=== PATIENT | female | born 1995 | race Caucasian/White ===

== ENCOUNTER 2017-03-23 15:02 | Emergency (ER) | payer BC, OTHER ==
[~2017-03-23] VITALS: Ht 162.6 cm; Wt 116.6 kg
[2017-03-23 15:45] VITALS: BP 123/81
== END 2017-03-23 16:47 | disposition home or self-care (01) ==
LOC: ER 15:02
DX: S93.401A Sprain of unspecified ligament of right ankle, initial encounter (principal); L73.2 Hidradenitis suppurativa; E11.9 Type 2 diabetes mellitus without complications; Z88.8 Allergy status to other drugs, medicaments and biological substances; W18.39XA Other fall on same level, initial encounter; Y93.89 Activity, other specified; Y92.89 Other specified places as the place of occurrence of the external cause; Y99.8 Other external cause status
CPT/HCPCS: 73590; 73610

== ENCOUNTER 2017-06-22 23:03 | Emergency (ER) | payer BC ==
[~2017-06-22] VITALS: Ht 162.6 cm; Wt 110.8 kg
[2017-06-22 23:43] LABS: Urine RBC None Seen /hpf (0 - 4)
[2017-06-23 00:06] LABS: Urine Bilirubin Negative (Negative); Urine Blood Negative /uL (Negative); Urine Color Yellow (Yellow); Urine Glucose 4+ mg/dL (Normal); Urine Ketone Negative (Negative); Urine Nitrite Negative (Negative); Urine Squamous Epithelial Cell FEW /hpf (<5); Urine Urobilinogen Normal (Negative)
[2017-06-23 00:14] LABS: Albumin 3.7 g/dL (3.4-5.0); BUN/Creatinine Ratio 11.3; Calcium 8.9 mg/dL (8.5-10.1); Potassium 3.8 mmol/L (3.5-5.1)
[2017-06-23 00:16] LABS: Basophils # (auto) 0 uL; Basophils % (auto) 0.5 % (0.0-2.0); Eosinophils # (auto) 0.3 uL; Eosinophils % (auto) 3.3 % (0.0-7.0); Hematocrit 43.3 % (36.0-46.0); Hemoglobin 15.2 g/dL (12.2-16.2); Lymphocytes # (auto) 2.6 uL; Mean Corpuscular Hemoglobin 29.5 pg (28.0-32.0); Mean Corpuscular Hgb Conc. 35.1 g/dL (32.0-36.0); Mean Corpuscular Volume 83.8 fL (80.0-100.0); Mean Platelet Volume 9.8 fL (7.4-10.4); Monocytes # (auto) 0.6 uL; Monocytes % (auto) 6.1 % (0.0-12.0); Neutrophils # (auto) 6.1 uL; Neutrophils % (auto) 63.1 % (37.0-80.0); Nucleated Red Blood Cells % 0.1 %; Platelet Count (auto) 238 10^3/uL (140-450); Red Cell Distribution Width 13.2 % (11.6-16.0); White Blood Cell 9.7 10^3/uL (4.4-10.8)
[2017-06-23 00:17] LABS: Bilirubin, Total 0.3 mg/dL (0.2-1.0); Total Protein 7.3 g/dL (6.4-8.2)
[2017-06-23 00:24] LABS: INR 0.86 (0.9-1.15); Prothrombin Time 9.4 sec (9.37-12.3)
[2017-06-23] MEDS ORDERED: cefTRIAXone 1GM/50ML D5W 50 ML IV ONE (03:30)
[2017-06-23] MEDS ORDERED: metroNIDAZOLE 500 MG TAB PO ONE (03:30)
[2017-06-23] MEDS ORDERED: SODIUM CHLORIDE 0.9% 1,000 ML IV ONE (03:30)
[2017-06-23 04:52] VITALS: BP 102/40
== END 2017-06-23 05:05 | disposition home or self-care (01) ==
LOC: ER 23:03 → EDBD 23:03 → ER 06-23 05:04
DX: K52.9 Noninfective gastroenteritis and colitis, unspecified (principal); E11.9 Type 2 diabetes mellitus without complications; I10 Essential (primary) hypertension; Z88.8 Allergy status to other drugs, medicaments and biological substances
CPT/HCPCS: 36415; 74176; 80053; 81001; 81025; 82150; 83690; 85025; 85610; 85730; 96365; 99285; J0696; J7030